=== PATIENT | male | born 1935 | race Caucasian/White ===

== ENCOUNTER 2019-01-26 05:23 | Day surgery (SDC) | payer OTHER ==
[2019-01-26] MEDS ORDERED: PROPARACAINE 0.5% OPHTH SOL 15 ML BTTL RIGHT_EYE ONE (12:58)
[2019-01-26] MEDS ORDERED: DEXAMETHASONE 0.1% OPHTH SOL 1 DROP RIGHT_EYE ONE (12:58)
[2019-01-26] MEDS ORDERED: BRIMONIDINE 0.2% OPHTH DROPS RIGHT_EYE ONE (12:58)
[2019-01-26] MEDS ORDERED: TOBRAMYCIN SULF 0.3 % OPHT SOL 1 DROP RIGHT_EYE ONE (12:58)
[2019-01-26] MEDS ORDERED: MIDAZOLAM INJ 2 MG/2 ML VIAL ONE (13:00)
[2019-01-26] MEDS ORDERED: fentaNYL CITRATE INJ 50 MCG/ML AMP ONE (13:08)
[2019-01-26] MEDS ORDERED: LIDOCAINE 1% 2 ML VIAL INJ ONE (13:17)
[2019-01-26] MEDS ORDERED: MOXIFLOXACIN HCL (OPHTH) 1 DROP DROPS RIGHT_EYE ONE (13:18)
== END 2019-01-26 12:55 | disposition home or self-care (01) ==
LOC: AMB 05:23
PROVIDERS: ATTEND Ophthalmology
DX: H25.11 Age-related nuclear cataract, right eye (principal); I10 Essential (primary) hypertension; Z79.899 Other long term (current) drug therapy
CPT/HCPCS: 00142; 66984; J2250; J3010

== ENCOUNTER 2019-02-16 05:30 | Day surgery (SDC) | payer OTHER ==
[2019-02-16] MEDS ORDERED: LIDOCAINE 1% 2 ML VIAL INJ ONE ×2 (11:00→11:14)
[2019-02-16] MEDS ORDERED: PROPARACAINE 0.5% OPHTH SOL 15 ML BTTL LEFT_EYE ONE ×2 (11:00→11:14)
[2019-02-16] MEDS ORDERED: MOXIFLOXACIN HCL (OPHTH) 1 DROP DROPS BOTH_EYES ONE ×2 (11:00→11:14)
[2019-02-16] MEDS ORDERED: DEXAMETHASONE 0.1% OPHTH SOL 1 DROP LEFT_EYE ONE ×2 (11:01→11:14)
[2019-02-16] MEDS ORDERED: TROP 1%/CYCLOPEN 1%/PHENYL 2% DROPS OPHTH ONE ×2 (11:01→11:14)
[2019-02-16] MEDS ORDERED: BRIMONIDINE 0.2% OPHTH DROPS LEFT_EYE ONE ×2 (11:01→11:14)
[2019-02-16] MEDS ORDERED: MIDAZOLAM INJ 2 MG/2 ML VIAL ONE (11:09)
== END 2019-02-16 12:10 | disposition home or self-care (01) ==
LOC: AMB 05:30
PROVIDERS: ATTEND Ophthalmology
DX: H25.12 Age-related nuclear cataract, left eye (principal); I10 Essential (primary) hypertension; Z79.899 Other long term (current) drug therapy
CPT/HCPCS: 00142; 66984; J2250